=== PATIENT | female | born 1990 | race Caucasian/White ===

== ENCOUNTER 2021-12-11 09:48 | Outpatient (CLI) | payer OTHER, SELFPAY ==
--- NOTE | ~2021-12-11 | MMUS_ITS ---
EXAMINATION: MM diagnostic jacob BI w [place], US breast BI limited HISTORY: Right nipple discharge and right axillary swelling, family history of breast cancer in her m other in her 40s TECHNIQUE: Craniocaudal, mediolateral, and mediolateral oblique 3-D tomosynthesis images of the breas ts were performed and synthetic 2-D images were generated. CAD analysis was submitted and interpreted . High resolution limited bilateral breast ultrasound was performed. COMPARISON: 07/21/2020 BREAST PARENCHYMAL COMPOSITION: The breasts are heterogeneously dense, which may obscure small masses . FINDINGS: MAMMOGRAPHIC FINDINGS: No mammographic correlate is identified for the patient's reported right nipple discharge. There is a subtle 9 mm obscured equal density mass in the anterior/middle third of the upper left breast at the 12:00 location 3 cm from the nipple. ULTRASOUND: There is a 5 mm subareolar cyst of the right breast. There is a 1.4 x 0.5 cm oval, circumscribed, par allel, complex cystic and solid mass at the 12:00 location 2 cm from the nipple in the left breast wi th no posterior features or internal vascularity. There is a 6 mm x 3 mm oval, circumscribed, paralle l, hypoechoic mass with no posterior features or internal vascularity at the 12:00 location 0.5 cm fr om the nipple. IMPRESSION: 1. No correlate identified for the patient's reported right nipple discharge. Continued clinical foll ow-up examination is recommended. Probably benign left breast masses. 2. Recommend 6 month follow-up targeted left breast ultrasound. BI-RADS category 3, probably benign findings. Reviewed, dictated and finalized at location A. IMPRESSION: 1. No correlate identified for the patient's reported right nipple discharge. C ontinued clinical follow-up examination is recommended. Probably benign left br east masses. 2. Recommend 6 month follow-up targeted left breast ultrasound. BI-RADS category 3, probably benign findings.
== END 2021-12-11 09:49 ==
PROVIDERS: PCP Family Medicine; Visit Provider Nurse Practitioner
DX: N63.10 Unspecified lump in the right breast, unspecified quadrant (principal); N64.52 Nipple discharge
CPT/HCPCS: 76642; 77062; 77066; G0279